=== PATIENT | female | born 1970 | race African-American/Black ===

== ENCOUNTER 2022-04-01 12:53 | Emergency (ER) | payer SELFPAY ==
[2022-04-01 13:26] VITALS: BMI 39.1
[2022-04-01 14:45] LABS: EPI CELLS 24 /uL (0-25.1); HYALINE CASTS 0 /uL (0-3.1); PH,URINE 6.5 (5.0-8.0); URINE APPEARANCE CLEAR; URINE BACTERIA 200 /uL (0-1359); URINE BILIRUBIN NEGATIVE (NEGATIVE); URINE COLOR YELLOW; URINE GLUCOSE (UA) NEGATIVE (NEGATIVE); URINE KETONE NEGATIVE (NEGATIVE); URINE LEUK ESTERASE NEGATIVE (NEGATIVE); URINE NITRITE NEGATIVE (NEGATIVE); URINE PROTEIN NEGATIVE (NEGATIVE); URINE RBC 23 /uL (0-23.9); URINE UROBILINOGEN 0.2 mg/dL (0.2-1.0); URINE WBC 17 /uL (0-25.8)
[2022-04-01] MEDS ORDERED: ACETAMINOPHEN 325 MG TABLET (FP) PO ONE (14:45)
[2022-04-01 14:55] VITALS: BP 148/99; PULSE 99; RESP 18; TEMP 99.3
[2022-04-01] MEDS ORDERED: ACETAMINOPHEN 325 MG TABLET (FP) ONE (14:55)
[2022-04-01 15:34] LABS: HEMATOCRIT 43.6 % (32.4-45.2); MCH 24.9 pg (25.7-33.7); MCHC 32.1 g/dl (32.0-36.0); MEAN CELL VOLUME 77.6 fl (80-96); MEAN PLT VOLUME 8.3 fl (7.5-11.1); PLATELET COUNT 411 10^3/uL (134-434); RBC 5.62 M/mm3 (3.60-5.2); RDW 14.6 % (11.6-15.6); WHITE BLOOD COUNT 8.6 K/mm3 (4.0-10.0)
[2022-04-01 15:57] LABS: ALBUMIN 3.9 g/dl (3.4-5.0); CALCIUM 10.1 mg/dL (8.5-10.1)
[2022-04-01 15:58] LABS: BLOOD UREA NITROGEN 10.1 mg/dL (7-18)
[2022-04-01 16:01] LABS: CREATININE 0.9 mg/dL (0.55-1.3)
[2022-04-01 16:02] LABS: BILIRUBIN,TOTAL 0.5 mg/dL (0.2-1); TOT PROT 8.5 g/dl (6.4-8.2)
== END 2022-04-01 18:05 | disposition home or self-care (01) ==
LOC: JER 12:53
DX: N93.9 Abnormal uterine and vaginal bleeding, unspecified (principal)
CPT/HCPCS: 36415; 76830-TC; 80053; 81003; 84703; 85027; 86850; 86900; 86901; 87086; 87491; 87591; 99284-25